=== PATIENT | female | born 1995 | race Caucasian/White ===

== ENCOUNTER 2017-02-16 19:24 | Emergency (ER) | payer SELFPAY ==
[~2017-02-16] VITALS: Ht 167.6 cm; Wt 54.5 kg
[~2017-02-16 19:24] MED LIST: ATARAX 25MG25 MG/TAB PO; CIPRO 500MG TA500 MG PO; DIFLUCAN 100MG100 MG PO; FELDENE10 MG PO; LEXAPRO 10MG10 MG PO; MACROBID 1100 MG/CAP PO; MAGIC MOUTHWASH1 M2 PO; NORCO 325 MG-51 TAB PO; ORTHO TRI-CYCLE1 TAB PO; PERCOCET 325 MG1 TA2 PO; PROZAC 10MG10 MG PO; PYRIDIUM200 M1 PO; SEROQUEL50 MG PO; ULTRAM 50MG TAB50 MG PO; ZOVIRAX400 MG PO
[2017-02-16 19:27] VITALS: TEMP 98.3
[2017-02-16] MEDS ORDERED: REMERON 15M15 MG/TA1 PO (19:30)
[2017-02-16] MEDS ORDERED: ADDERALL20 MG PO (19:31)
[2017-02-16] MEDS ORDERED: APRI 0.15 MG-0.1 TAB PO (20:05)
[2017-02-16 20:28] LABS: BASO # 0.1 (0.0-0.2); BASO % 0.6 % (0.0-2.0); EOS # 0.3 (0.0-0.7); EOS % 3.3 % (0-4.0); GRAN # 6.9 (1.4-6.5); GRAN % 67.8 % (42.2-75.2); HEMATOCRIT 42.1 % (37.0-47.0); HEMOGLOBIN 14.6 g/dl (12.5-16.0); LYMPH # 2.3 (1.2-3.4); LYMPH % 22.3 % (20.0-51.0); MEAN CELL VOLUME 89 fl (80.0-100.0); MEAN CORPUSCULAR HEMOGLOBIN 31 pg (27.0-31.0); MEAN CORPUSCULAR HGB CONC 35 g/dl (33.0-37.0); MEAN PLATELET VOLUME 10.9 fl (7.4-10.4); MONO # 0.6 (0.1-0.6); MONO % 5.7 % (1.7-9.3); PLATELET COUNT 319 K/mm3 (130-400); RED BLOOD COUNT 4.71 M/mm3 (4.10-5.30); REDCELL DISTRIBUTION WIDTH-CV 11.9 % (11.5-14.5); WHITE BLOOD COUNT 10.2 K/mm3 (4.8-10.8)
[2017-02-16 20:32] LABS: PH 5 (5-8); SQUAMOUS EPITHELIAL 0-2 /hpf; URINE APPEARANCE Hazy; URINE BACTERIA None Seen /hpf; URINE BILIRUBIN Negative (NEGATIVE); URINE BLOOD 3+ (NEGATIVE); URINE COLOR Yellow; URINE GLUCOSE Negative (NEGATIVE); URINE KETONE Negative (NEGATIVE); URINE RBC >50 /hpf; URINE UROBILINOGEN Negative (NEGATIVE)
[2017-02-16 20:44] LABS: ADJUSTED CALCIUM 9.2 mg/dL (8.4-10.2); ALBUMIN 4.5 gm/dL (3.5-5.0); BILIRUBIN,TOTAL 0.8 mg/dL (0.0-1.0); C-REACTIVE PROTEIN 0.7 mg/dL (0.0-0.9); CALCIUM 9.6 mg/dL (8.4-10.2); CREATININE, serum 0.74 mg/dL (0.52-1.25); POTASSIUM 3.8 mmol/L (3.4-5.0); TOTAL PROTEIN 7.6 gm/dL (6.4-8.2)
[2017-02-16] MEDS ORDERED: REGLAN 5MG T5 MG/TAB PO (21:27)
[2017-02-16 21:45] VITALS: BP 131/89; PULSE 76
== END 2017-02-16 21:46 | disposition home or self-care (01) ==
LOC: COL.ER 19:24
PROVIDERS: Family Medicine
DX: R10.9 Unspecified abdominal pain (principal); R11.10 Vomiting, unspecified
CPT/HCPCS: C9113; J2270; J2550; J7030; Q9967

== ENCOUNTER 2017-06-23 21:26 | Emergency (ER) | payer SELFPAY ==
[~2017-06-23] VITALS: Ht 167.6 cm; Wt 46.7 kg
[~2017-06-23 21:26] MED LIST changes: +ADDERALL20 MG PO; +APRI 0.15 MG-0.1 TAB PO; +REGLAN 5MG T5 MG/TAB PO; +REMERON 15M15 MG/TA1 PO
[2017-06-23 21:32] VITALS: TEMP 97.9
[2017-06-23 21:58] LABS: COLLECTION METHOD CLEAN CATCH
[2017-06-23 22:43] LABS: PH 6 (5-8); SQUAMOUS EPITHELIAL 0-2 /hpf; URINE APPEARANCE Clear; URINE BILIRUBIN Negative (NEGATIVE); URINE BLOOD 1+ (NEGATIVE); URINE COLOR Yellow; URINE GLUCOSE Negative (NEGATIVE); URINE KETONE Negative (NEGATIVE); URINE LEUKOCYTE ESTERASE Negative (NEGATIVE); URINE NITRATE Negative (NEGATIVE); URINE PROTEIN(semi-quant) Negative (NEGATIVE); URINE UROBILINOGEN Negative (NEGATIVE)
[2017-06-23 22:44] LABS: URINE BACTERIA Moderate /hpf
[2017-06-23 23:00] VITALS: BP 117/64
[2017-06-23] MEDS ORDERED: INDERAL 20MG20 MG PO (23:02)
[2017-06-23] MEDS ORDERED: ATARAX 25MG25 MG/TAB PO (23:03)
[2017-06-23] MEDS ORDERED: AMITRIPTYLINE H10 M1 PO (23:03)
[2017-06-23] MEDS ORDERED: ADDERALL20 MG PO (23:04)
[2017-06-24] MEDS ORDERED: CEFTIN 250250 MG/TAB PO (00:42)
[2017-06-24] MEDS ORDERED: FLAGYL500 MG PO (01:09)
[2017-06-24 01:17] VITALS: PULSE 88
[2017-06-25] MEDS ORDERED: PYRIDIUM 100MG100 MG PO (18:43)
== END 2017-06-24 01:18 | disposition home or self-care (01) ==
LOC: COL.ER 21:26
PROVIDERS: Emergency Medicine
DX: N39.0 Urinary tract infection, site not specified (principal); N76.0 Acute vaginitis; F41.9 Anxiety disorder, unspecified; F17.210 Nicotine dependence, cigarettes, uncomplicated; F32.9 Major depressive disorder, single episode, unspecified; F90.9 Attention-deficit hyperactivity disorder, unspecified type

== ENCOUNTER 2018-12-17 00:32 | Emergency (ER) | payer SELFPAY ==
[~2018-12-17] VITALS: Ht 165.1 cm; Wt 45.5 kg
[~2018-12-17 00:32] MED LIST changes: +AMITRIPTYLINE H10 M1 PO; +CEFTIN 250250 MG/TAB PO; +FLAGYL500 MG PO; +INDERAL 20MG20 MG PO; +PYRIDIUM 100MG100 MG PO
[2018-12-17 00:44] VITALS: BP 124/72; PULSE 96; TEMP 98.6
[2018-12-17] MEDS ORDERED: SEROQUEL 2525 MG/TAB PO (00:49)
[2018-12-17 01:15] LABS: COLLECTION METHOD CLEAN CATCH
[2018-12-17 01:39] LABS: AMORPHOUS CRYSTAL Present /uL; MUCOUS Present /lpf; PH 7 (5-8); URINE APPEARANCE Cloudy; URINE BACTERIA Rare /hpf; URINE BILIRUBIN Negative (NEGATIVE); URINE BLOOD Negative (NEGATIVE); URINE COLOR Yellow; URINE GLUCOSE Negative (NEGATIVE); URINE KETONE Negative (NEGATIVE); URINE LEUKOCYTE ESTERASE Trace (NEGATIVE); URINE NITRATE Negative (NEGATIVE); URINE PROTEIN(semi-quant) Negative (NEGATIVE); URINE UROBILINOGEN Negative (NEGATIVE)
[2018-12-17] MEDS ORDERED: ZOFRAN ODT4 MG SL (01:48)
== END 2018-12-17 02:01 | disposition home or self-care (01) ==
LOC: COL.ER 00:32
PROVIDERS: Emergency Medicine
DX: O21.1 Hyperemesis gravidarum with metabolic disturbance (principal); O99.331 Smoking (tobacco) complicating pregnancy, first trimester; F17.210 Nicotine dependence, cigarettes, uncomplicated; Z3A.11 11 weeks gestation of pregnancy

== ENCOUNTER 2019-01-21 16:48 | Emergency (ER) | payer MEDICAID ==
[~2019-01-21] VITALS: Ht 165.1 cm; Wt 49.1 kg
[~2019-01-21 16:48] MED LIST changes: +SEROQUEL 2525 MG/TAB PO; +ZOFRAN ODT4 MG SL
[2019-01-21 17:53] LABS: COLLECTION METHOD CLEAN CATCH
[2019-01-21 17:59] LABS: BASO % 0.4 % (0.0-2.0); EOS # 0.3 (0.0-0.7); EOS % 3.6 % (0-4.0); GRAN % 64.6 % (42.2-75.2); HEMATOCRIT 37.1 % (37.0-47.0); LYMPH # 2.3 (1.2-3.4); LYMPH % 24.8 % (20.0-51.0); MEAN CELL VOLUME 89 fl (80.0-100.0); MEAN CORPUSCULAR HEMOGLOBIN 31 pg (27.0-31.0); MEAN CORPUSCULAR HGB CONC 35 g/dl (33.0-37.0); MEAN PLATELET VOLUME 10.6 fl (7.4-10.4); MONO # 0.5 (0.1-0.6); MONO % 5.9 % (1.7-9.3); PLATELET COUNT 281 K/mm3 (130-400); RED BLOOD COUNT 4.18 M/mm3 (4.10-5.30); REDCELL DISTRIBUTION WIDTH-CV 12.8 % (11.5-14.5)
[2019-01-21 18:04] LABS: MUCOUS Present /lpf; PH 5 (5-8); SQUAMOUS EPITHELIAL 20-50 /hpf; URINE APPEARANCE Cloudy; URINE BACTERIA None Seen /hpf; URINE BILIRUBIN Negative (NEGATIVE); URINE BLOOD Negative (NEGATIVE); URINE COLOR Yellow; URINE GLUCOSE Negative (NEGATIVE); URINE KETONE Negative (NEGATIVE); URINE LEUKOCYTE ESTERASE Negative (NEGATIVE); URINE NITRATE Negative (NEGATIVE); URINE PROTEIN(semi-quant) Negative (NEGATIVE); URINE UROBILINOGEN Negative (NEGATIVE)
[2019-01-21 18:28] LABS: ALANINE AMINOTRANSFERASE < 6 U/L (9-52); ALBUMIN 3.9 gm/dL (3.5-5.0); ALKALINE PHOSPHATASE 56 U/L (50-136); ANION GAP 9 mmol/L (7-16); AST,SGOT 28 U/L (15-37); BILIRUBIN,TOTAL 0.3 mg/dL (0.0-1.0); BLOOD UREA NITROGEN 4 mg/dL (7-17); CALCIUM 8.8 mg/dL (8.4-10.2); CARBON DIOXIDE 24 mmol/L (22-30); CHLORIDE 105 mmol/L (98-107); CREATININE, serum 0.48 (0.52-1.25); GLUCOSE 91 mg/dL (74-106); POTASSIUM 3.7 mmol/L (3.4-5.0); SODIUM 138 mmol/L (137-145); TOTAL PROTEIN 6.6 gm/dL (6.4-8.2)
[2019-01-21 19:03] VITALS: BP 113/64
[2019-01-21 19:46] VITALS: PULSE 97
== END 2019-01-21 17:51 | disposition home or self-care (01) ==
LOC: COL.ER 16:48
PROVIDERS: Emergency Medicine
DX: O26.891 Other specified pregnancy related conditions, first trimester (principal); R55 Syncope and collapse; Z3A.13 13 weeks gestation of pregnancy
CPT/HCPCS: J7030

== ENCOUNTER 2019-07-20 20:04 | Inpatient (IN) | payer MEDICAID ==
[~2019-07-20] VITALS: Ht 165.1 cm; Wt 69.1 kg
--- NOTE | 2019-07-20 20:15 | NUR ---
PT ARRIVES TO UNIT WITH COMPLAINTS OF CONTRACTIONS THAT BEGAN AT 1630 TODAY. ORIENTED TO ROOM, CHANGED INTO GOWN, EFM X2 APPLIED, VS OBTAINED, SVE PERFORMED.
[2019-07-20 20:29] VITALS: BP 135/84; PULSE 86; TEMP 98.1
[2019-07-20 20:30] VITALS: BP 135/84; PULSE 86; TEMP 98.1
[2019-07-20] MEDS ORDERED: AMBIEN 5MG TABLE5 MG PO (20:36)
[2019-07-20 22:00] VITALS: BP 127/78; PULSE 80
[2019-07-20 22:41] LABS: BASO % 0.3 % (0.0-2.0); EOS # 0.2 (0.0-0.7); EOS % 1.6 % (0-4.0); GRAN % 73.8 % (42.2-75.2); HEMATOCRIT 37.2 % (37.0-47.0); HEMOGLOBIN 12.7 g/dl (12.5-16.0); LYMPH # 2.3 (1.2-3.4); LYMPH % 15.7 % (20.0-51.0); MEAN CELL VOLUME 90 fl (80.0-100.0); MEAN CORPUSCULAR HEMOGLOBIN 31 pg (27.0-31.0); MEAN CORPUSCULAR HGB CONC 34 g/dl (33.0-37.0); MEAN PLATELET VOLUME 11.6 fl (7.4-10.4); MONO # 1.1 (0.1-0.6); MONO % 7.5 % (1.7-9.3); PLATELET COUNT 274 K/mm3 (130-400); RED BLOOD COUNT 4.15 M/mm3 (4.10-5.30); REDCELL DISTRIBUTION WIDTH-CV 13.2 % (11.5-14.5)
--- NOTE | 2019-07-20 22:50 | NUR ---
2250- PT REQUESTS EPIDURAL. Renzo NOLASCO [employer] BUILDINGS DECORATOR NOTIFIED OF REQUEST, ON HIS WAY FOR EPIDURAL PLACEMENT. 2300- PT OFF MONITOR TO USE BATHROOM. 2303- PT SITTING AT SIDE OF BED.
[2019-07-20 23:15] VITALS: BP 139/72; PULSE 70
[2019-07-20 23:30] VITALS: BP 141/69; PULSE 79
--- NOTE | 2019-07-20 23:30 | NUR ---
2319- PT SITTING UP AT BEDSIDE FOR EPIDURAL PLACEMENT. Renzo NOLASCO CRNA IN ROOM 2323- SINGLE SHOT GIVEN BY Renzo NOLASCO CRNA, PT TOLERATED WELL. 2329- PT REPOSITIONED IN BED FOLLOWING EPIDURAL PLACEMENT, SEMIFOWLERS WITH LEFT WEDGE.
[2019-07-20 23:45] VITALS: BP 120/64; PULSE 71
--- NOTE | 2019-07-20 23:49 | NUR ---
LATE DECELERATION INTO THE 80'S AND LASTING FOR 4.5 MINUTES. SVE OF 5-6/90/-2, EPHEDRINE 10MG IV GIVEN DUE TO PT STATING SHE IS LIGHTHEADED, BP REMAINED STABLE THROUGHOUT THIS TIME. 02 ON PER FACE MASK AT 10L, LR BOLUS STARTED. FHT RETURNS TO BASELINE OF 135 AFTER APPROXIMATELY 4.5 MINUTES.
[2019-07-21] VITALS (49 sets, daily range): BP systolic 103–140; BP diastolic 55–91; PULSE 64–109; TEMP 97.4–98.4
--- NOTE | 2019-07-21 01:31 | NUR ---
LATE DECELERATION INTO THE 90'S. PT REPOSTIONED TO RIGHT WEDGE, LR BOLUS GIVEN, 10MG EPHEDRINE GIVEN IV, 02 ON PER FACE MASK AT 10L. SVE OF 7-8/90/-2 WITH BULGING BAG. FHT'S RETURN TO BASELINE OF 135 AFTER APPROXIMATELY 4 MINUTES.
--- NOTE | 2019-07-21 02:30 | NUR ---
DIFFICULTY TRACING CONTRACTIONS DUE TO MATERNAL POSITION, TOCO ADJUSTED.
--- NOTE | 2019-07-21 02:45 | NUR ---
CONTINUED DIFFICULTY TRACING CONTRACTION PATTERN DUE TO MATERNAL POSITION.
--- NOTE | 2019-07-21 09:12 | NUR ---
Dr. Max request to unit for FHR decelerations. On route to unit. 0915-Dr. Max at bedside. Pt prepped for delivery. Begins pushing with physician. 0931- of viable female infant attended by Dr. Max. Cord clamped x 2 and cut from umbilicus. Infant dried and taken to warmer per mother's request. Care of infant to Shiloh Greer RN. Apgars 8/9/9. 0935- of placenta. Fundus firm at umbilicus. Bleeding WNL. Pitocin infusing per protocol. Laceration repaired per provider. Pericare performed. Ice pack applied. Pt updated on POC. Safety reviewed. Bed locked in low position. Call light within reach. No questions or concerns at this time.
[2019-07-21] MEDS ORDERED: PERCOCET 325 MG1 TA2 PO (16:08)
[2019-07-21] MEDS ORDERED: BREASTPUMP MC (16:08)
[2019-07-21] MEDS ORDERED: IBU600 MG PO (16:08)
[2019-07-22 01:30] VITALS: BP 112/70; PULSE 83; TEMP 97.6
[2019-07-22 07:30] VITALS: BP 127/73; PULSE 95; TEMP 97.8
== END 2019-07-22 13:35 | disposition home or self-care (01) | DRG 807 ==
LOC: LDRO 20:04 → LDR 21:51 → OB 07-21 13:00
PROVIDERS: Obstetrics & Gynecology; ADMIT Obstetrics & Gynecology
PROC: 10E0XZZ Delivery of Products of Conception, External Approach (ICD-10-PCS; principal; 2019-07-20)
PROC: 0UQKXZZ Repair Hymen, External Approach (ICD-10-PCS; 2019-07-20)
DX: O42.92 Full-term premature rupture of membranes, unspecified as to length of time between rupture and onset of labor (principal); Z37.0 Single live birth; O70.0 First degree perineal laceration during delivery; O99.62 Diseases of the digestive system complicating childbirth; Z3A.39 39 weeks gestation of pregnancy; G47.00 Insomnia, unspecified; F90.9 Attention-deficit hyperactivity disorder, unspecified type; K21.9 Gastro-esophageal reflux disease without esophagitis
CPT/HCPCS: J2590; J2795; J7120

== ENCOUNTER 2019-07-24 12:25 | Emergency (ER) | payer MEDICAID ==
[~2019-07-24] VITALS: Ht 165.1 cm; Wt 66.4 kg
[~2019-07-24 12:25] MED LIST changes: +AMBIEN 5MG TABLE5 MG PO; +BREASTPUMP MC; +IBU600 MG PO
[2019-07-24 13:01] VITALS: TEMP 98.2
[2019-07-24 15:04] LABS: BASO # 0.1 (0.0-0.2); BASO % 0.4 % (0.0-2.0); EOS # 0.5 (0.0-0.7); GRAN # 7.4 (1.4-6.5); GRAN % 65.4 % (42.2-75.2); LYMPH # 2.7 (1.2-3.4); LYMPH % 23.4 % (20.0-51.0); MEAN CELL VOLUME 94 fl (80.0-100.0); MEAN CORPUSCULAR HEMOGLOBIN 31 pg (27.0-31.0); MEAN CORPUSCULAR HGB CONC 33 g/dl (33.0-37.0); MONO # 0.7 (0.1-0.6); MONO % 5.8 % (1.7-9.3); PLATELET COUNT 241 K/mm3 (130-400); RED BLOOD COUNT 3.55 M/mm3 (4.10-5.30); REDCELL DISTRIBUTION WIDTH-CV 13.2 % (11.5-14.5)
[2019-07-24 15:07] LABS: HEMATOCRIT 33.2 % (37.0-47.0)
[2019-07-24 15:18] LABS: ALANINE AMINOTRANSFERASE 30 U/L (4-34); ALBUMIN 3.3 gm/dL (3.5-5.0); ALKALINE PHOSPHATASE 118 U/L (50-136); ANION GAP 7 mmol/L (7-16); AST,SGOT 73 U/L (15-37); BILIRUBIN,TOTAL 0.3 mg/dL (0.0-1.0); BLOOD UREA NITROGEN 14 mg/dL (7-17); CALCIUM 8.9 mg/dL (8.4-10.2); CARBON DIOXIDE 26 mmol/L (22-30); CHLORIDE 105 mmol/L (98-107); CREATININE, serum 0.58 (0.52-1.25); GLUCOSE 80 mg/dL (74-106); POTASSIUM 4.1 mmol/L (3.4-5.0); SODIUM 138 mmol/L (137-145); TOTAL PROTEIN 6.3 gm/dL (6.4-8.2)
[2019-07-24 15:30] LABS: TROPONIN-I < 0.012 ng/mL (0.000-0.035)
[2019-07-24] MEDS ORDERED: ATARAX 25MG25 MG/TAB PO (16:27)
[2019-07-24 17:17] VITALS: BP 129/69; PULSE 80
== END 2019-07-24 17:20 | disposition home or self-care (01) ==
LOC: COL.ER 12:25
PROVIDERS: Physician Assistant
DX: O90.81 Anemia of the puerperium (principal); O99.345 Other mental disorders complicating the puerperium; F41.9 Anxiety disorder, unspecified; F90.9 Attention-deficit hyperactivity disorder, unspecified type; O90.89 Other complications of the puerperium, not elsewhere classified; R07.9 Chest pain, unspecified; R06.00 Dyspnea, unspecified; O99.335 Smoking (tobacco) complicating the puerperium; F17.290 Nicotine dependence, other tobacco product, uncomplicated; Z79.1 Long term (current) use of non-steroidal anti-inflammatories (NSAID)
CPT/HCPCS: Q9967

== ENCOUNTER 2022-02-26 16:40 | Emergency (ER) | payer MEDICAID ==
[~2022-02-26] VITALS: Ht 162.6 cm; Wt 68.9 kg
[2022-02-26 17:05] VITALS: TEMP 98.6
[2022-02-26 18:59] LABS: BASO # 0.1 K/mm3 (0.0-0.2); BASO % 0.5 % (0.0-2.0); EOS # 0.3 K/mm3 (0.0-0.7); EOS % 3.4 % (0.0-4.0); GRAN # 5.7 K/mm3 (1.4-6.5); GRAN % 62.3 % (42.2-75.2); HEMOGLOBIN 14.4 g/dl (12.5-16.0); LYMPH # 2.5 K/mm3 (1.2-3.4); LYMPH % 27.3 % (20.0-51.0); MEAN CELL VOLUME 88 fl (80.0-100.0); MEAN CORPUSCULAR HEMOGLOBIN 29 pg (27-31); MEAN CORPUSCULAR HGB CONC 34 g/dl (33.0-37.0); MEAN PLATELET VOLUME 10.6 fl (7.4-10.4); MONO # 0.6 K/mm3 (0.1-0.6); MONO % 6.2 % (1.7-9.3); PLATELET COUNT 426 K/mm3 (130-400); REDCELL DISTRIBUTION WIDTH-CV 12.6 % (11.5-14.5)
[2022-02-26 19:16] LABS: ALBUMIN 4.1 gm/dL (3.5-5.0); BILIRUBIN,TOTAL 0.4 mg/dL (0.2-1.2); CALCIUM 9.5 mg/dL (8.4-10.2); CREATININE, serum 0.75 mg/dL (0.57-1.11); POTASSIUM 3.5 mmol/L (3.5-4.5); TOTAL PROTEIN 7.8 gm/dL (6.2-8.1)
[2022-02-26 19:21] LABS: TROPONIN-I 0.01 ng/mL (0.00-0.033)
[2022-02-26 19:51] VITALS: BP 135/95; PULSE 90
== END 2022-02-26 20:07 | disposition home or self-care (01) ==
LOC: COL.ER 16:40
PROVIDERS: Nurse Practitioner
DX: F41.9 Anxiety disorder, unspecified (principal); R07.89 Other chest pain

== ENCOUNTER 2022-07-04 12:36 | Emergency (ER) | payer MEDICAID ==
[~2022-07-04] VITALS: Ht 162.6 cm; Wt 75.0 kg
[2022-07-04 12:43] VITALS: BP 120/79; PULSE 117; TEMP 97.9
== END 2022-07-04 13:32 | disposition home or self-care (01) ==
LOC: COL.ER 12:36
DX: S60.212A Contusion of left wrist, initial encounter (principal); X58.XXXA Exposure to other specified factors, initial encounter

== ENCOUNTER → 2023-06-03 | Outpatient (CLI) | payer MEDICAID ==
[~2023-06-03] MED LIST changes: +CEPHALEXIN500 M1 PO
== END ==
LOC: MC.RAD 08:30
DX: R92.8 Other abnormal and inconclusive findings on diagnostic imaging of breast (principal)

== ENCOUNTER → 2023-07-22 | Outpatient (CLI) | payer MEDICAID ==
[~2023-07-22] MED LIST changes: +Iohexol 300 - 100 ML VIAL IV ONE; +NS 50 ML IV SCH
== END ==
LOC: MC.RAD 17:37
DX: K76.0 Fatty (change of) liver, not elsewhere classified (principal)
CPT/HCPCS: Q9967

== ENCOUNTER 2024-04-10 20:45 | Emergency (ER) | payer SELFPAY ==
[~2024-04-10] VITALS: Ht 167.6 cm; Wt 72.4 kg
[~2024-04-10 20:45] MED LIST changes: -Iohexol 300 - 100 ML VIAL IV ONE; -NS 50 ML IV SCH
[2024-04-10 21:06] VITALS: TEMP 98.6
[2024-04-10] MEDS ORDERED: Ketorolac 15 MG/ML VIAL IV ONE (22:30)
[2024-04-10 22:42] LABS: COLLECTION METHOD CLEAN CATCH
[2024-04-10 22:44] LABS: BASO # 0.1 K/mm3 (0.0-0.2); BASO % 0.6 % (0.0-2.0); EOS # 0.5 K/mm3 (0.0-0.7); EOS % 4.5 % (0.0-4.0); GRAN # 6.3 K/mm3 (1.4-6.5); GRAN % 59.7 % (42.2-75.2); HEMATOCRIT 44.5 % (37.0-47.0); HEMOGLOBIN 15.1 g/dl (12.5-16.0); LYMPH # 2.8 K/mm3 (1.2-3.4); LYMPH % 27.1 % (20.0-51.0); MEAN CELL VOLUME 88 fl (80.0-100.0); MEAN CORPUSCULAR HEMOGLOBIN 30 pg (27-31); MEAN CORPUSCULAR HGB CONC 34 g/dl (33.0-37.0); MEAN PLATELET VOLUME 10.2 fl (7.4-10.4); MONO # 0.8 K/mm3 (0.1-0.6); MONO % 7.7 % (1.7-9.3); PLATELET COUNT 391 K/mm3 (130-400); RED BLOOD COUNT 5.05 M/mm3 (4.10-5.30); REDCELL DISTRIBUTION WIDTH-CV 12.9 % (11.5-14.5)
[2024-04-10 22:46] LABS: PH 5.5 (5.0-8.5); URINE APPEARANCE CLEAR (CLEAR/HAZY); URINE BLOOD NEGATIVE (NEGATIVE); URINE COLOR YELLOW (YELLOW); URINE GLUCOSE NEGATIVE (NEGATIVE); URINE KETONE NEGATIVE (NEGATIVE); URINE NITRATE NEGATIVE (NEGATIVE); URINE PROTEIN(semi-quant) NEGATIVE (NEGATIVE); URINE UROBILINOGEN 0.2 E.U/dL (0.2-1.0)
[2024-04-10] MEDS ORDERED: Iohexol 300 - 100 ML VIAL IV ONE (22:56)
[2024-04-10] MEDS ORDERED: NS 50 ML IV SCH (22:57)
[2024-04-10 23:03] LABS: BILIRUBIN,TOTAL 0.2 mg/dL (0.2-1.2); CALCIUM 9.5 mg/dL (8.4-10.2); CREATININE, serum 0.82 mg/dL (0.57-1.11); POTASSIUM 3.9 mEq/L (3.5-4.5); TOTAL PROTEIN 6.8 g/dl (6.2-8.1)
[2024-04-11] MEDS ORDERED: Amoxicillin/Clavulanate K+ 875/125 MG TAB PO ONE (00:15)
[2024-04-11] MEDS ORDERED: Sulfamethoxazole/Trimethoprim 800-160 MG TAB PO ONE (00:15)
[2024-04-11] MEDS ORDERED: AMOXICILLIN875 MG PO (00:16)
[2024-04-11] MEDS ORDERED: BACTRIM DS 8001 TAB PO (00:16)
[2024-04-11 00:25] VITALS: BP 125/94; PULSE 105
== END 2024-04-11 00:25 | disposition home or self-care (01) ==
LOC: COL.ER 20:45
PROVIDERS: Emergency Medicine
DX: L03.213 Periorbital cellulitis (principal); F17.210 Nicotine dependence, cigarettes, uncomplicated
CPT/HCPCS: J1885; Q9967